=== PATIENT | female | born 1990 | race Caucasian/White ===

== ENCOUNTER 2016-12-03 10:14 | Emergency (ER) | payer OTHER ==
[2016-12-03 10:27] VITALS: BP 126/92
--- NOTE | 2016-12-03 11:50 | ERNOTE ---
ER Female HPI Date of Service: 12/03/16 Stated Complaint: SPOTTING CRAMPING 8 WKS Presenting Symptoms: other - history of passing clots yesterday and light pink smear on toilet paper this am 0300 Time Seen by Provider: 12/03/16 11:01 Source: patient Exam Limitations: no limitations Immunizations: IMMUNIZATION HX History of Influenza Vaccine No Hx Pneumococcal Vaccination No Allergies/Adverse Reactions: Allergies No Known Allergies Allergy (Verified 12/03/16 10:27) Home Medications: HOME MEDICATIONS Vit#96/Ferrous Fum/FA [ S] 1 tab PO DAILY 04/24/16 [Last Taken 2 Days Ago] - History of Present Illness Narrative: 26 year old female [id number] who presents to ED stating that she is 8 weeks . Confirmed by U/S and labs Dr Charles last week. LMP 09/2016 with EDC 07/13/17. Patient states spotting since Mon and had 4 large clots size of quarter yesterday only. States noticed spotting Wednesday morning and then proceeded to have sexual intercourse. Denies passing clots today. States this morning after urination wiped and had light pink bloody smear on toilet paper. Presently denies pain, cramping or bleeding. States she is nervous and wants reassurance. Date (Duration): 12/03/16 Timing: Present: resolved prior to arrival, other - states spotting since Mon, clots yesterday Quality: Present: mild Onset Location: Present: vaginal Radiation: Present: none Activities at Onset: Present: none Prior Abdominal Problems: Present: none Sexual [place] History: Present: single partner Associated Symptoms: Present: nausea, other - cramping and passing clots Prior Treatment: Present: recently seen - saw Dr Charles 11/29 for labs and US Review of Systems - Review of Systems Constitutional: Present: See HPI EYE: Present: no symptoms reported ENT: Present: no symptoms reported Respiratory: Present: no symptoms reported Cardiology: Present: no symptoms reported Gastrointestinal/Abdominal: Present: nausea Genitourinary: Present: See HPI Musculoskeletal: Present: no symptoms reported Skin: Present: no symptoms reported Neurological: Present: anxiety - slightly anxious Endocrine: Present: no symptoms reported Hematologic/Lymphatic: Present: no symptoms reported Psych: Present: no symptoms reported - Patient's Past Medical History Patient History - Medical: Obesity, Other Patient History - Cardiac/Respiratory: No pertinent hx Patient History - Cancer: No Hx of Cancer Patient History - Surgical Procedures: No surgical history LMP (females 10-50): 09/2016 - Social History Living Situations: home Smoking Status: Never smoker Have you smoked in the past 12 months: No Alcohol Use: none Drug Use: none Physical Exam - Physical Exam General Appearance: Present: wd/wn, alert, no apparent distress Eye Exam: Normal inspection: bilateral Ears, Nose, Throat: Present: hearing grossly normal Neck: Present: normal inspection, nontender Respiratory: Present: no respiratory distress, normal breath sounds, no accessory muscle use, chest nontender, lungs clear Cardiovascular/Chest: Present: regular rate, rhythm, no murmur, normal peripheral pulses Peripheral Pulses: N=norm/S=strong/W=weak/B=bound/A=absent: Radial (R): Strong, Radial (L): Strong Gastrointestinal/Abdominal: Present: normal bowel sounds, nontender, nondistended, soft, no organomegaly Back Exam: Present: normal inspection, normal range of motion, no CVA tenderness , no vertebral tenderness Extremity Exam: Present: normal inspection, non-tender, no edema, normal range of motion Neurological Exam: Present: alert, oriented, normal mood/affect, no motor/ sensory deficits Skin Exam: Present: normal color, warm/dry Lymphatic Exam: Present: no adenopathy ED Progress - Vital Signs Patient's Vital Signs:: I have reviewed the patient's vital signs. Vital Signs: Vital Signs 12/03/16 10:24 Temperature 35.9 C L Pulse Rate 93 Respiratory 14 Rate Blood Pressure 126/92 O2 Sat by Pulse 98 Oximetry - Progress/Reassessment Chief Complaint: Genitourinary Problem Progress:: Unchanged Progress Note-Subjective: 12/03/16 11:37 HENRY Lopes spoke with Dr Charles and he re iterated the results of the US and his discussion with the patient. He originally informed the patient that due to the subchorionic hematoma noted on US that the patient should expect minor bleeding for next couple weeks. He originally instructed the patient to seek medical care if she began to bleed, saturating pads or passing clots size of a lemon. Departure Clinical Impression: First trimester bleeding Qualifiers: Weeks of gestation: 8 weeks Qualified Code(s): Z3A.08 - 8 weeks gestation of - Departure Disposition: Home Follow Up Needed Condition: Good Instructions: Subchorionic Hematoma Additional Instructions: nothing in vagina as instructed previously by Dr Charles. Return to ED if you saturated more than a pad per hour. Contact Dr Charles with other concerns Referrals: Alexi Charles DO [Primary Care Provider] -
== END 2016-12-03 11:51 | disposition home or self-care (01) ==
LOC: ER 10:14
DX: O20.9 Hemorrhage in early pregnancy, unspecified (principal); Z3A.08 8 weeks gestation of pregnancy; O20.0 Threatened abortion

== ENCOUNTER 2016-12-04 08:33 | Emergency (ER) | payer OTHER ==
[2016-12-04 09:17] VITALS: BP 123/94
[2016-12-04 10:03] LABS: Hematocrit 41.5 % (37.0-47.0); Hemoglobin 13.3 gm/dL (12.5-16.0); Mean Cell Volume 83.2 fl (78-100); Mean Corpuscular Hemoglobin 26.7 pg (27-31); Mean Platelet Volume 10.2 fl (6.0-9.5); Neutrophil # 5.5 K/mm3 (1.3-6.0); Neutrophil % 71.4 % (42-75.0); Platelet Count 288 K/mm3 (150-450); Red Blood Count 4.99 M/mm3 (4.2-5.4); Red Cell Distribution Width 14.1 % (11.5-14.0); White Blood Count 7.7 K/mm3 (4.0-10.5)
--- NOTE | 2016-12-04 10:11 | ERNOTE ---
ER Female HPI Date of Service: 12/04/16 Stated Complaint: MISCARRIAGE Presenting Symptoms: vaginal bleeding Time Seen by Provider: 12/04/16 09:55 Source: patient Exam Limitations: no limitations Immunizations: IMMUNIZATION HX History of Influenza Vaccine No Hx Pneumococcal Vaccination No Allergies/Adverse Reactions: Allergies No Known Allergies Allergy (Verified 12/04/16 09:17) Home Medications: HOME MEDICATIONS Vit#96/Ferrous Fum/FA [ S] 1 tab PO DAILY 04/24/16 [Last Taken 2 Days Ago] - History of Present Illness Narrative: patient is a 26 year old female who return to ED complaining of vaginal bleeding and cramping. Patient was seen here last night by this provider. Patient states she was discharged and went home. States cramping started about 1930 and vaginal bleeding started 30 minutes after. States she soaked thru pad in 45 minutes. Went to neighboring ED and US obtained. Was told that she is miscarrying. States she bled thru the night yet one pad lasted 6 hours. States cramping and bleeding stopped this morning Date (Duration): 12/04/16 Timing: Present: resolved prior to arrival Onset Location: Present: other - no pain now Activities at Onset: Present: rest Prior Abdominal Problems: Present: none Review of Systems - Review of Systems Constitutional: Present: no symptoms reported. Absent: recent illness, fever, chills, diaphoresis EYE: Present: no symptoms reported ENT: Present: no symptoms reported Respiratory: Present: no symptoms reported. Absent: shortness of breath, cough Cardiology: Present: no symptoms reported. Absent: chest pain, palpitations Gastrointestinal/Abdominal: Present: no symptoms reported. Absent: nausea, vomiting, diarrhea Genitourinary: Present: no symptoms reported Musculoskeletal: Present: no symptoms reported Skin: Present: no symptoms reported Neurological: Present: no symptoms reported - Patient's Past Medical History Patient History - Medical: Obesity, Other Patient History - Cardiac/Respiratory: No pertinent hx Patient History - Cancer: No Hx of Cancer Patient History - Surgical Procedures: No surgical history - Social History Living Situations: home Alcohol Use: none Drug Use: none Physical Exam - Physical Exam General Appearance: Present: wd/wn, alert, no apparent distress Eye Exam: Normal inspection: bilateral Ears, Nose, Throat: Present: normal ENT inspection, hearing grossly normal Neck: Present: normal inspection, nontender Respiratory: Present: no respiratory distress, normal breath sounds, no accessory muscle use, chest nontender, lungs clear Cardiovascular/Chest: Present: regular rate, rhythm, no murmur, normal peripheral pulses Peripheral Pulses: N=norm/S=strong/W=weak/B=bound/A=absent: Radial (R): Strong, Radial (L): Strong Gastrointestinal/Abdominal: Present: normal bowel sounds, nontender, nondistended, soft Back Exam: Present: normal inspection, normal range of motion, no CVA tenderness Extremity Exam: Present: normal inspection, non-tender, no edema, normal range of motion Neurological Exam: Present: alert, oriented, normal mood/affect, no motor/ sensory deficits Skin Exam: Present: normal color, warm/dry ED Progress - Vital Signs Patient's Vital Signs:: I have reviewed the patient's vital signs. Vital Signs: Vital Signs 12/04/16 09:14 Temperature 37 C Pulse Rate 105 H Respiratory 14 Rate Blood Pressure 123/94 O2 Sat by Pulse 100 Oximetry - Progress/Reassessment Chief Complaint: Genitourinary Problem Progress Note-Subjective: 12/04/16 10:[address] Charles--requested that we give patient option of either Cytotec SL every 3 hours or to call office in am to set up D&C. Talked with patient and discussed option with her. Patient elected to have D&C. Verbalized understanding that she will call office in am and talk with staff. Patient continues to state that she is not bleeding at this time. Departure Clinical Impression: Miscarriage, threatened, early , First trimester bleeding - Departure Disposition: Home Follow Up Needed Condition: Good Instructions: Miscarriage, [id number], Vaginal Bleeding During , First Trimester Additional Instructions: Call Dr Charles office in morning to set up time for D&C. Return if begin to bleed through one pad per hour or if you pass clots the size of olga. Return with dizziness, passing out or chest pain Referrals: Alexi Charles DO [Staff Physician] -
== END 2016-12-04 11:10 | disposition home or self-care (01) ==
LOC: ER 08:33
DX: O20.0 Threatened abortion (principal)

== ENCOUNTER 2017-09-03 15:47 | Emergency (ER) | payer OTHER ==
[2017-09-03] MEDS ORDERED: ONDANSETRON 4 MG TAB.RAPDIS PO ONE (16:08)
--- NOTE | 2017-09-03 16:14 | ERNOTE ---
Medical Problem HPI - Narrative Date of Service: 09/03/17 - General Chief Complaint: Nausea/Vomiting Time Seen by Provider: 09/03/17 15:50 Source: patient Exam Limitations: no limitations - Immun/Allergies/Home Medications Immunizations: IMMUNIZATION HX Immunizations Up to Date Yes History of Influenza Vaccine No Hx Pneumococcal Vaccination No Allergies/Adverse Reactions: Allergies No Known Allergies Allergy (Verified 12/04/16 09:17) Home Medications: HOME MEDICATIONS Vits96/Iron Fum/Folic [ S] 1 tab PO DAILY 04/24/16 [Last Taken 2 Days Ago ~04/23/16] Misoprostol [Cytotec] 200 mcg SL Q4H #9 tablet 12/04/16 [Last Taken Unknown] oxyCODONE HCL/ACETAMINOPHEN [Percocet 5 MG/325 MG] 1 - 2 tab PO Q4H PRN #20 tab 12/04/16 [Last Taken Unknown] Ondansetron [Zofran Odt] 4 mg PO Q6H PRN #20 tab 09/03/17 [Last Taken Unknown] - History of Present History Narrative: Pt. comes in with c/o nausea and vomiting for a week. Pt. denies any CP, SOB, diarrhea, fever, but states that she has not been able to hold down solids for a week since she took her GTT. When she discussed with her OBGYN he told her that she likely had a virus and to push fluids. She then contacted the on-call MD for her OB today who recommended that she come in to the ER. Review of Systems - Review of Systems Constitutional: Present: no symptoms reported. Absent: recent illness, fever, chills, weakness, fatigue, malaise EYE: Present: no symptoms reported ENT: Present: no symptoms reported Respiratory: Present: no symptoms reported. Absent: shortness of breath, cough , wheezing Cardiology: Present: no symptoms reported. Absent: chest pain, palpitations, edema Gastrointestinal/Abdominal: Present: nausea, vomiting. Absent: diarrhea, abdominal pain Genitourinary: Present: no symptoms reported. Absent: frequency, decreased urinary output Musculoskeletal: Present: no symptoms reported. Absent: back pain, joint pain Skin: Present: no symptoms reported. Absent: rash, change in color Neurological: Present: no symptoms reported. Absent: headache, dizziness/light- headedness, weakness, numbness, tingling All Other Systems: All systems neg except as marked - Patient's Past Medical History Patient History - Medical: Obesity, Other - miscarriages Patient History - Cardiac/Respiratory: No pertinent hx Patient History - Cancer: No Hx of Cancer Patient History - Surgical Procedures: No surgical history, D & C Patient History - Other: None - Social History Living Situations: home Abuse History: No History of abuse Psych History: No pertinent hx Smoking Status: Never smoker - Immunizations Immunizations Up to Date: Yes Hx Pneumococcal Vaccination: No History of Influenza Vaccine: No Physical Exam - Physical Exam General Appearance: Present: wd/wn, alert, no apparent distress Head Exam: Present: normal inspection, no evidence of injury Eye Exam: Normal inspection: bilateral, PERRL: bilateral, EOMI: bilateral Ears, Nose, Throat: Present: normal ENT inspection, normal pharynx Neck: Present: normal inspection, nontender. Absent: lymphadenopathy (R), lymphadenopathy (L) Respiratory: Present: no respiratory distress, normal breath sounds, no accessory muscle use, chest nontender, lungs clear Cardiovascular/Chest: Present: regular rate, rhythm, no murmur, normal peripheral pulses Gastrointestinal/Abdominal: Present: normal bowel sounds, nontender, nondistended, soft, no organomegaly Back Exam: Present: normal inspection, normal range of motion, no CVA tenderness , no vertebral tenderness Extremity Exam: Present: normal inspection, non-tender, normal range of motion, no edema Neurological Exam: Present: alert, oriented, normal mood/affect, no motor/ sensory deficits Skin Exam: Present: normal color, warm/dry. Absent: pallor, skin rash ED Progress - Date and Time Seen: Date and Time: 09/03/17 17:[address] Fernandez and as pt. is not nauseated at this time and is not dehydrated has a good NST and is able to hold down foods and fluids we feel taht pt. can go home at this time. - Results and Orders Patient's Lab Results:: I have reviewed the patient's lab results. - Vital Signs Patient's Vital Signs:: I have reviewed the patient's vital signs. Vital Signs: Vital Signs 09/03/17 15:51 Temperature 36.1 C L Pulse Rate 90 Respiratory 16 Rate Blood Pressure 135/80 O2 Sat by Pulse 99 Oximetry - Progress/Reassessment Chief Complaint: Nausea/Vomiting Departure Clinical Impression: Nausea and vomiting Qualifiers: Vomiting type: unspecified Vomiting Intractability: non-intractable Qualified Code(s): R11.2 - Nausea with vomiting, unspecified - Departure Disposition: Home self-care Condition: Good Instructions: Nausea, Adult Additional Instructions: Please follow up with Dr Charles as planned. Referrals: Alexi Charles DO [Primary Care Provider] - Prescriptions: Ondansetron [Zofran Odt] 4 mg PO Q6H PRN #20 tab PRN Reason: Nausea
[2017-09-03 16:18] LABS: Hematocrit 36.9 % (37.0-47.0); Hemoglobin 12.4 gm/dL (12.5-16.0); Mean Cell Volume 88.1 fl (78-100); Mean Corpuscular Hemoglobin 29.6 pg (27-31); Mean Corpuscular Hgb Conc 33.6 g/dl (32-36); Mean Platelet Volume 10.2 fl (6.0-9.5); Neutrophil # 5.7 K/mm3 (1.3-6.0); Neutrophil % 67.2 % (42-75.0); Platelet Count 208 K/mm3 (150-450); Red Blood Count 4.19 M/mm3 (4.2-5.4); Red Cell Distribution Width 13.2 % (11.5-14.0); White Blood Count 8.5 K/mm3 (4.0-10.5)
[2017-09-03] MEDS ORDERED: ONDANSETRON HCL/PF 2 MG/ML VIAL ONE (16:19)
[2017-09-03] MEDS ORDERED: ONDANSETRON 4 MG TAB.RAPDIS ONE (16:20)
[2017-09-03 16:31] LABS: Albumin * 2.9 gm/dl (3.4-5.0); Anion Gap 13.5 mmol/L (6.8-13.8); BUN/Creatinine Ratio 13.5 (9.0-21.6); Bilirubin, Total 0.2 mg/dL (0.0-1.1); Ca. Corrected For Albumin 9.1 mg/dL (8.4-10.2); Calcium * 8.5 mg/dL (7.9-10.9); Carbon Dioxide 23.3 mmol/L (24-32.6); Potassium 3.8 mmol/L (3.4-4.6); Total Protein 6.6 gm/dL (6.2-8.2)
[2017-09-03 17:05] LABS: Urine Appearance Clear; Urine Color Yellow
[2017-09-03 17:06] LABS: Urine Bilirubin Negative (NEGATIVE); Urine Blood Negative /ul (NEGATIVE); Urine Ketone Negative (NEGATIVE); Urine Nitrite Negative (NEGATIVE); Urine Protein Negative (NEGATIVE); Urine Urobilinogen Normal (NORMAL); Urine WBC 0-5 /hpf (0-5)
[2017-09-03 17:07] LABS: Urine Bacteria None Seen; Urine RBC None Seen /hpf (0-5)
[2017-09-03 17:12] VITALS: BP 134/80
== END 2017-09-03 17:20 | disposition home or self-care (01) ==
LOC: ER 15:47
DX: R11.2 Nausea with vomiting, unspecified (principal)

== ENCOUNTER 2017-10-24 15:23 | Inpatient (IN) | payer MEDICAID, OTHER ==
[2017-10-24 15:35] LABS: Hematocrit 37.4 % (37.0-47.0); Hemoglobin 12.2 gm/dL (12.5-16.0); Mean Corpuscular Hemoglobin 28.4 pg (27-31); Mean Corpuscular Hgb Conc 32.6 g/dl (32-36); Mean Platelet Volume 11.3 fl (6.0-9.5); Neutrophil % 65.7 % (42-75.0); Platelet Count 203 K/mm3 (150-450); Red Cell Distribution Width 13.6 % (11.5-14.0); White Blood Count 7.7 K/mm3 (4.0-10.5)
[2017-10-24 15:52] LABS: Albumin * 2.9 gm/dl (3.4-5.0); BUN/Creatinine Ratio 17.2 (9.0-21.6); Bilirubin, Total 0.2 mg/dL (0.0-1.1); Ca. Corrected For Albumin 9.7 mg/dL (8.4-10.2); Calcium * 9.1 mg/dL (7.9-10.9); Total Protein 6.6 gm/dL (6.2-8.2); Uric Acid 2.9 mg/dL (2.6-7.2)
[2017-10-24 16:16] LABS: Random Urine Total Protein 35.2 mg/dL (0-12)
[2017-10-24] MEDS ORDERED: RINGER'S SOLUTION,LACTATED 1,000 ML IV ONE (16:37)
[2017-10-24] MEDS ORDERED: MISOPROSTOL 100 MCG TABLET VG PRN (16:37)
[2017-10-24] MEDS ORDERED: ONDANSETRON HCL/PF 2 MG/ML VIAL IV PRN (16:37)
[2017-10-24] MEDS ORDERED: LIDOCAINE HCL 50 ML VIAL PERI PRN (16:37)
[2017-10-24] MEDS ORDERED: BUTORPHANOL TARTRATE 2 MG/ML VIAL IV PRN (16:37)
[2017-10-24] MEDS ORDERED: MAGNESIUM SULFATE IN WATER 50 ML IV ONE (16:37)
[2017-10-24] MEDS ORDERED: hydrALAZINE HCL 20 MG/ML VIAL IV PRN (16:37)
[2017-10-24] MEDS ORDERED: MAGNESIUM SULFATE IN WATER 1,000 ML IV SCH (16:45)
[2017-10-24] MEDS: DEXTROSE 5%-LACTATED RINGERS 1,000 ML IV PRN (16:56)
[2017-10-24] MEDS ORDERED: OXYTOCIN/DEXTROSE 5%-WATER 30 UNITS/500 ML BAG IV ONE (17:39)
[2017-10-24] MEDS ORDERED: ACETAMINOPHEN 500 MG TABLET PO ONE (17:40)
[2017-10-24] MEDS: OXYTOCIN/DEXTROSE 5%-WATER 30 UNITS/500 ML BAG IV ONE (18:05)
[2017-10-24 18:12] LABS: Cocaine Ur Negative (NEGATIVE); Urine Barbiturate Negative (NEGATIVE); Urine Benzodiazepines Negative (NEGATIVE); Urine Opiates Negative (NEGATIVE); Urine PCP Negative (NEGATIVE); Urine THC Negative (NEGATIVE)
[2017-10-24] MEDS ORDERED: ACETAMINOPHEN 500 MG TABLET PO PRN (22:18)
[2017-10-25] MEDS: RINGER'S SOLUTION,LACTATED 1,000 ML IV PRN ×2 (01:15→18:15)
[2017-10-25] MEDS: DEXTROSE 5%-LACTATED RINGERS 1,000 ML IV PRN (08:17)
[2017-10-25] MEDS ORDERED: NALOXONE HCL 1 MG/1 ML SYRG IV PRN (09:20)
[2017-10-25] MEDS ORDERED: ONDANSETRON HCL/PF 2 MG/ML VIAL IV PRN (09:20)
[2017-10-25] MEDS ORDERED: BUPIVACAINE HCL/0.9 % NACL/PF 250 ML EP PRN (09:20)
[2017-10-25] MEDS ORDERED: fentaNYL CITRATE/PF 50 MCG/ML AMPUL IT SCH (09:30)
--- NOTE | 2017-10-25 11:04 | PN ---
Progess Note - Interim Narrative: 10/25/17 10:53 Subjective-patient does feel contractions. She denies headaches, blurry vision , epigastric pain, edema at this time. Patient is frustrated that this is taking a long time and wants to get up and move around. Objective- SVE- 1.5/60/-3, cephalic, patient is extremely difficult to check, she is unable to relax, close as her legs and climbs up the bed with the initial touch of the labia, she screams profanity and requests made to stop the exam, per which I do. She has like this with every exam and examiner. She states that she was like this in the clinic as well. FHTs- reassuring [place]-every 4 minutes Assessment and plan- Labor-induction with Pitocin. Pitocin was started due to too frequent contractions to receive Cytotec. Patient has made minimal progress and difficult to assess her due to discomfort with exams. At this time I recommend Roy bulb or amniotomy. Patient had a Roy bulb and a previous delivery and stated that was very uncomfortable and does not want to do that. Patient is willing to try amniotomy. This was attempted and again patient was screaming, swearing, and requested me to stop. We had a long discussion about epidural and the needing to be able to continue with her induction and the risks, benefits, and alternatives to proceeding with Roy bulb, amniotomy, and Pitocin and at this time patient consents to an epidural. Gestational hypertension-blood pressures are intermittently labile go into the severe range during vaginal exams and checks. Patient is asymptomatic at this time. Should she develop a headache or persistently elevated blood pressures in the severe range then plan to use antihypertensives and start magnesium sulfate. GBS status- neg Continue current plan of care.
--- NOTE | 2017-10-25 12:14 | PN ---
Progess Note - Interim Narrative: 10/25/17 12:07 Subjective-patient received epidural and states it was not as bad as she thought , she is able to move her legs, patient denies feeling contractions, feels occasional pressure Objective- SVE- 3-4/60/-3, cephalic, amniotomy performed with minimal clear fluid FHTs- 140s, moderate variability, positive accelerations, no decelerations [place]- every 2-4 minutes Assessment and plan- Labor-induction heart tones-reassuring Gestational hypertension-asymptomatic, continue to monitor GBS status-negative Continue current plan of care.
--- NOTE | 2017-10-25 13:58 | OR ---
Anesthesia Procedure Note - Anesthesia Procedure Note Narrative: Vital Signs - Last Taken Temp 36.5 C 10/25/17 10:29 Pulse 83 10/25/17 10:29 Resp 16 10/25/17 10:29 BP 145/77 10/25/17 10:29 Pulse Ox 10/25/17 13:57 ANESTHESIA PROCEDURE NOTE Date of Procedure: 10/25/2017 Time of procedure: 10:30. Performed by: Xiang Bansal CRNA Hand Surgeon: None. Preprocedure diagnosis: Active labor. Post procedure diagnosis: Same. Procedure: Insertion of labor epidural. Indications: The patient is a 27 -year-old multigravida female in active labor requesting labor epidural for pain management. Findings: See below. Details of the procedure: The patient was placed in a sitting position. Back was prepped with DuraPrep. Patient was then draped in a sterile fashion. Lidocaine 1% was infiltrated to the skin and subcutaneous tissues at the level of the L3 4 interspace. The epidural space was identified using a 18-gauge Tuohy needle with [id number] technique. 20 mcg fentanyl was given intrathecally using a 27 ga. spinal needle. Epidural catheter was inserted without difficulty. Negative test dose was elicited using 5 mL of 1.5% preservative-free lidocaine plus epinephrine 1 200,000. The epidural catheter was then taped and secured in place. EBL: Minimal. Fluids: N/A. Specimen: N/A. Post procedure condition: The patient tolerated the procedure well. No complications were noted. Thank you for this consultation. Jacobson CRNA
[2017-10-25] MEDS: OXYTOCIN/DEXTROSE 5%-WATER 30 UNITS/500 ML BAG IV ONE (16:49)
[2017-10-25] MEDS ORDERED: diphenhydrAMINE HCL 25 MG CAPSULE PO PRN (22:58)
[2017-10-25] MEDS ORDERED: HYDROCORTISONE 30 APPL TUBE TP PRN (22:58)
[2017-10-25] MEDS ORDERED: BISACODYL 10 MG SUPP.RECT RC PRN (22:58)
[2017-10-25] MEDS ORDERED: HYDROcodone/ACETAMINOPHEN 1 EACH TABLET PO PRN (22:58)
[2017-10-25] MEDS ORDERED: SENNOSIDES 8.6 MG TABLET PO PRN (22:58)
[2017-10-25] MEDS ORDERED: BENZOCAINE/MENTHOL 81 SPRAY CAN TP PRN (22:58)
[2017-10-25] MEDS ORDERED: GLYCERIN/WITCH HAZEL LEAF 40 APPL BOX TP PRN (22:58)
--- NOTE | 2017-10-25 23:18 | OR ---
Operative Report - Dictated Report Narrative: Spontaneous Vaginal Delivery Note: 27 yo, CF, at 37.5 weeks, admitted for induction of labor for severe gestational hypertension. GBS was negative. Dilated to 1.5 cm at admission. Pitocin started for induction. Received epidural for pain. AROM at 3.5 cm with small clear fluid. Patient was not cooperative for vaginal exam the entire time during the labor process. Progressed to complete without complications. The perineum cleaned with betadine. Pushed with contractions and descent. Head delivered in OA over the perineum. No nuchal cord noted. The anterior shoulder delivered, followed by the posterior shoulder and the rest of the baby without difficulty. Baby cried at perineum. Baby placed on maternal abdomen for drying and care by the nursing. Cord was clamped at one minute of life, and cut by father of baby. Cord blood was obtained. Placenta delivered intact with 3 vessel cord and with 2 loose knots noted after delivery. Pitocin drip started after placenta delivered. Exam of the perineum, vaginal and cervix revealed no laceration. Fundus was massaged and firm. Bleeding was initially large and slowed down to minimal. Cytotec 800 mcg placed in rectum after delivery. Mother and baby tolerated the delivery well. EBL 400 ml. Infant: female, 2713 grams, 5 lbs and 15.7 oz. 9/9. Time of delivery: 22: 28. Placenta sent to pathology. Marina Fernandez MD History for Definition: * The number of deliveries resulting in a live the patient experienced prior to current hospitalization * The previous delivery of live twins or any live multiple gestation is considered one live event. *If primagravida or nulliparous is documented select zero for the number of previous live births. Live Events: 2
[2017-10-25] MEDS: IBUPROFEN 800 MG TABLET PO PRN (23:34)
[2017-10-26] MEDS: DOCUSATE SODIUM 100 MG CAPSULE PO SCH ×2 (08:19→21:23)
--- NOTE | 2017-10-26 09:15 | PN ---
Progess Note - Interim Narrative: 10/26/17 09:14 progress note Subjective: The patient is doing well. She is ambulating, voiding, tolerating by mouth. She has minimal pain and moderate lochia. Denies headache, blurry vision, epigastric pain. Objective: General: No acute distress Abdomen: Soft, nontender, fundus is firm just below the umbilicus Extremities: minimal edema, nontender to palpation Assessment and plan: day 1 Feeding: Breast Pain: Controlled with by mouth medication Gestational hypertension: Resolving Routine care.
[2017-10-26] MEDS: IBUPROFEN 800 MG TABLET PO PRN ×2 (12:45→23:24)
--- NOTE | 2017-10-27 05:08 | PATH ---
PHYSICIAN: Marina Fernandez M.D. LAB #: [id number] SPECIMEN DATE: 10/26/2017 SPECIMEN: Placenta. CLINICAL INFORMATION: 27-year-old at 37.5 weeks admitted for induction of labor for severe gestational hypertension. Delivered a 2713 gram girl with a total score of 9,9. Observation, 2 loose knots in umbilical cord. GROSS DESCRIPTION: The specimen is received in a formalin-filled container appropriately designated "placenta." Specimen has an eccentrically attached 42 x 1.1 cm umbilical cord with 2 true knots located at 28 and 34 cm from the insertion site. The 7.1 x 4.1 x 2.2 cm, 496 gram placenta shows an unremarkable slate marino surface. Cross sections show beefy red parenchyma with no focal lesions. Maternal cotyledons are intact. membranes are slightly opacified. Summary of cassettes: 1 -- Umbilical cord; 2-3 -- Full-thickness placenta; 4 - - Marginal placenta; 5 -- membranes. DIAGNOSIS: INTRAUTERINE CONTENTS, SPONTANEOUS VAGINAL DELIVERY: THIRD TRIMESTER TRI-VASCULAR UMBILICAL CORD 396 GRAM PLACENTA SHOWING: -TWO TRUE LOOSE UMBILICAL CORD KNOTS, SEE COMMENT COMMENT: No evidence of chorioamnionitis or infarction.
[2017-10-27] MEDS: IBUPROFEN 800 MG TABLET PO PRN (06:49)
[2017-10-27 07:56] VITALS: BP 145/71
[2017-10-27] MEDS: DOCUSATE SODIUM 100 MG CAPSULE PO SCH (09:25)
--- NOTE | 2017-10-27 11:27 | PN ---
Subjective - Date and Time Seen Date: 10/27/17 Time: 11:25 Objective - Vitals Vitals: Last Vital Signs Temp 36.7 C 10/27/17 06:30 Pulse 74 10/27/17 06:30 Resp 18 10/27/17 06:30 BP 145/71 10/27/17 06:30 Pulse Ox 97 10/27/17 06:30 Patient denies complaints. Lochia wnl Abdomen - soft, nontender Uterus - firm, at umbilicus - 2 No calf tenderness Impression: day #2 - s/p spontaneous vaginal delivery. Severe gestational hypertension-improving. Morbid obesity-stable. Plan: Routine discharge instructions. Preeclampsia precautions. Follow-up in the office in 2 weeks for blood pressure check and early visit. Cauti Physician Documentation - Urinary Catheter Management Urethral (Roy) Date of Insertion: 10/25/17 Time of Insertion: 11:30
== END 2017-10-27 14:20 | disposition home or self-care (01) | DRG 775 ==
LOC: LAB 15:23 → OB 16:26
PROVIDERS: ADMIT Obstetrics & Gynecology Gynecologic Oncology; ATTEND Obstetrics & Gynecology Gynecologic Oncology
PROC: 10E0XZZ Delivery of Products of Conception, External Approach (ICD-10-PCS; principal; 2017-10-25)
PROC: 10907ZC Drainage of Amniotic Fluid, Therapeutic from Products of Conception, Via Natural or Artificial Opening (ICD-10-PCS; 2017-10-25)
PROC: 4A1HXCZ Monitoring of Products of Conception, Cardiac Rate, External Approach (ICD-10-PCS; 2017-10-25)
PROC: 3E0P3VZ Introduction of Hormone into Female Reproductive, Percutaneous Approach (ICD-10-PCS; 2017-10-25)
DX: O13.4 Gestational [pregnancy-induced] hypertension without significant proteinuria, complicating childbirth (principal); O69.2XX0 Labor and delivery complicated by other cord entanglement, with compression, not applicable or unspecified; Z3A.38 38 weeks gestation of pregnancy; Z37.0 Single live birth